=== PATIENT | female | born 1990 | race Caucasian/White ===

== ENCOUNTER 2017-06-13 14:22 | Emergency (ER) | payer BC ==
[~2017-06-13] VITALS: Ht 170.2 cm; Wt 74.6 kg
[2017-06-13 15:23] LABS: BASOPHIL % 0.8 % (0-2); PLATELET COUNT 304 x10^3mcL (130-400); RED CELL DISTRIBUTION WIDTH 14.1 % (11.5-14.5)
[2017-06-13 15:37] LABS: CALCIUM 9.7 mg/dL (8.5-10.1); CARBON DIOXIDE 33.7 mmol/L (21-32); CHLORIDE SERUM 100 mmol/L (98-107); CREATININE SERUM 0.8 mg/dL (0.6-1.0); GFR1 > 60 mL/min; GLUCOSE SERUM 94 mg/dL (74-106); POTASSIUM SERUM 3.9 mmol/L (3.5-5.1); SODIUM SERUM 137 mmol/L (136-145)
[2017-06-13 16:32] VITALS: BP 121/73
== END 2017-06-13 16:32 | disposition home or self-care (01) ==
LOC: ED 14:22
PROVIDERS: Emergency Medicine
DX: R51 Headache (principal)
CPT/HCPCS: 36415